=== PATIENT | female | born 1985 | race Caucasian/White ===

== ENCOUNTER 2020-04-18 21:21 | Emergency (ER) | payer OTHER ==
[~2020-04-18] VITALS: Ht 160 cm; Wt 63.5 kg
--- NOTE | 2020-04-18 21:36 | Emergency Room Report ---
History of Present Illness General Chief Complaint: Headache Source: Patient Present Illness HPI 34-year-old female, no past medical history no surgical history presents with occipital head trauma patient states that she was started by something hit her head against the back of a cabinet on the occiput, no LOC she endorses some nausea, states there is some achy pain in the posterior aspect of her head no aggravating leaving factors severity is mild, constant patient presents for evaluation and treatment symptoms started at 3 PM when she hit her head she spoke with the tele-doc, who states she may have a concussion. Allergies: Coded Allergies: No Known Allergies (Unverified , 04/18/20) COVID-19 Screening Contact w/high risk pt: No Experienced COVID-19 symptoms?: No COVID-19 Testing performed TELEPHONE APPOINTMENT CLERK: No Patient History Past Medical History: see triage record Last Menstrual Period: 04/01/20 Now: No : 0 Para: 0 Reviewed Nursing Documentation: PMH: Agreed; PSxH: Agreed Nursing Documentation-PMH Past Medical History: No Stated History Review of Systems All Other Systems: negative except mentioned in HPI Physical Exam Vital Signs Date Time Temp Pulse Resp B/P (MAP) Pulse Ox O2 Delivery O2 Flow Rate FiO2 04/18/20 21:24 98.2 59 18 114/72 (86) 100 Room Air General Appearance: well appearing, no apparent distress Head: normocephalic, atraumatic, other - No bruising, no obvious deformity ENT: hearing grossly normal, normal voice Neck: full range of motion, supple Respiratory: no respiratory distress, speaking full sentences Neurologic: alert, normal gait Psychiatric: mood/affect normal Skin: no rash Medical Decision Making Diagnostic Impression: Primary Impression: Contusion of head Qualified Codes: S00.83XA - Contusion of other part of head, initial encounter Additional Impression: Concussion Qualified Codes: S06.0X0A - Concussion without loss of consciousness, initial encounter ER Course 34-year-old female presents with most likely contusion of the head with a possible concussion, patient is currently on not on any blood thinners, will obtain a CT scan, CT scan negative, patient most likely with concussive symptoms disposition home with return precautions CT/MRI/US Diagnostic Results CT/MRI/US Diagnostic Results : Impression CT head: No acute intracranial processes Final Report EXAM: CT Head Without Intravenous Contrast CLINICAL HISTORY: PAIN TECHNIQUE: Axial computed tomography images of the head/brain without intravenous contrast. CTDI is 53.4 mGy and DLP is 938.7 mGy-cm. One or more of the following dose reduction techniques were used: automated exposure control, adjustment of the mA and/or kV according to patient size, use of iterative reconstruction technique. COMPARISON: No relevant prior studies available. FINDINGS: Brain: No hemorrhage. No edema. Ventricles: No ventriculomegaly. Bones/joints: No acute fracture. Soft tissues: Unremarkable. Sinuses: No acute sinusitis. Mastoid air cells: No mastoid effusion. IMPRESSION: No acute intracranial process. Radiologist: Vinayak Johnson M.D. Electronically Signed: 04/18/20 22:25 Study ready at 21:59 and initial results transmitted at 22:25 Last Vital Signs Date Time Temp Pulse Resp B/P (MAP) Pulse Ox O2 Delivery O2 Flow Rate FiO2 04/18/20 21:24 98.2 59 18 114/72 (86) 100 Room Air Disposition: HOME, SELF-CARE Condition: Stable Referrals: [facility] Patient Instructions: Concussion, Adult, [id number], Head Injury, Adult, Easy -to-Read Additional Instructions: The patient was provided with discharge instructions, notified to follow-up with a primary care doctor and or specialist in the next 24-48 hours, and to return to the ED if they have worsening of their symptoms. Please note that this report is being documented using [employer] technology. This can lead to erroneous entry secondary to incorrect interpretation by the dictating instrument. Boby Gregorio MD Apr 18, 2020 21:36
[2020-04-18] MEDS ORDERED: Metoclopramide 10mg/2ml Inj IM ONE (21:45)
[2020-04-18] MEDS ORDERED: Acetaminophen 500mg (ES) tab ORAL ONE (21:45)
[2020-04-18 22:15] VITALS: BP 119/79
--- NOTE | 2020-04-18 22:26 | Diagnostic Imaging Report ---
EXAM: CT Head Without Intravenous Contrast CLINICAL HISTORY: PAIN TECHNIQUE: Axial computed tomography images of the head/brain without intravenous contrast. CTDI is 53.4 mGy and DLP is 938.7 mGy-cm. One or more of the following dose reduction techniques were used: automated exposure control, adjustment of the mA and/or kV according to patient size, use of iterative reconstruction technique. COMPARISON: No relevant prior studies available. FINDINGS: Brain: No hemorrhage. No edema. Ventricles: No ventriculomegaly. Bones/joints: No acute fracture. Soft tissues: Unremarkable. Sinuses: No acute sinusitis. Mastoid air cells: No mastoid effusion. IMPRESSION: No acute intracranial process.
[2020-04-18 22:40] VITALS: BP 119/79
== END 2020-04-18 22:40 | disposition home or self-care (01) ==
LOC: EMR 21:45
DX: S00.83XA Contusion of other part of head, initial encounter (principal); S06.0X0A Concussion without loss of consciousness, initial encounter; W22.8XXA Striking against or struck by other objects, initial encounter; Y92.9 Unspecified place or not applicable
CPT/HCPCS: 70450; 81025; 99284